=== PATIENT | male | born 1970 | race Caucasian/White ===

== ENCOUNTER 2017-03-15 12:53 | Emergency (ER) | payer OTHER ==
[~2017-03-15] VITALS: Ht 182.9 cm; Wt 136.1 kg
[2017-03-15 12:56] VITALS: BP 124/85
== END 2017-03-15 15:00 | disposition admitted as inpatient to this hospital (09) ==
LOC: ERH 12:53
DX: S60.861A Insect bite (nonvenomous) of right wrist, initial encounter (principal)